=== PATIENT | male | born 1980 | race Caucasian/White ===

== ENCOUNTER 2019-07-23 18:24 | Emergency (ER) | payer OTHER ==
[~2019-07-23] VITALS: Ht 182.9 cm; Wt 91.0 kg
[2019-07-23 18:58] LABS: AMPHETAMINE/METHAMPHETAMINE NEG (NEG); BARBITURATES NEG (NEG); BENZODIAZEPINES NEG (NEG); CANNABINOIDS NEG (NEG); COCAINE NEG (NEG); METHADONE NEG (NEG); OPIATES NEG (NEG); PHENCYCLIDINE NEG (NEG)
--- NOTE | 2019-07-23 18:58 | PHYS DOC ---
Adult General Chief Complaint Chief Complaint: OVERDOSE HPI HPI 38-year-old male presents to the emergency Department complaints of suicidal ideation. Patient took approximately 30-40 Tylenol 325 mg at 1635, 13 100 mg Col norberto. He complains of nausea. He denies any headache, visual change, abdominal pain, diarrhea. Patient has history of depression. Patient is currently in custody, officers at bedside. Patient with limited conversation regarding presentation and circumstances leading up to ingestion. Review of Systems Review of Systems Constitutional: Denies fever or chills [] Respiratory: Denies cough or shortness of breath [] Cardiovascular: No additional information not addressed in HPI [] GI: Denies abdominal pain, + nausea, no vomiting, bloody stools or diarrhea [] : Denies dysuria or hematuria [] Musculoskeletal: Denies back pain or joint pain [] Neurologic: Denies headache, focal weakness or sensory changes [] All other systems were reviewed and found to be within normal limits, except as documented in this note. Current Medications Current Medications Current Medications Medications (Trade) Dose Ordered Sig/Faina Start Time Stop Time Status Last Admin Dose Admin Ondansetron HCl (Zofran) 4 mg 1X ONCE 07/23/19 19:30 07/23/19 19:31 DC 07/23/19 19:25 4 MG Allergies Allergies Allergies Coded Allergies Type Severity Reaction Last Updated Verified Iodine and Iodide Containing Produc Allergy Intermediate 07/23/19 Yes Physical Exam Physical Exam Constitutional: Well developed, well nourished, no acute distress, non-toxic appearance. [] HENT: Normocephalic, atraumatic, bilateral external ears normal, oropharynx moist, no oral exudates, nose normal. [] Eyes: PERRLA, EOMI, conjunctiva normal, no discharge. [] Cardiovascular:Heart rate regular rhythm, no murmur [] Lungs & Thorax: Bilateral breath sounds clear to auscultation [] Abdomen: Bowel sounds normal, soft, no tenderness, no masses, no pulsatile masses. [] Skin: Warm, dry, no erythema, no rash. [] Back: No tenderness, no CVA tenderness. [] Extremities: No tenderness, no edema. [] Neurologic: Alert and oriented X 3, no focal deficits noted. [] Psychologic: Affect normal, judgement normal, mood normal. [] Current Patient Data Vital Signs Vital Signs Date Time Temp Pulse Resp B/P (MAP) Pulse Ox O2 Delivery O2 Flow Rate FiO2 07/23/19 18:30 98.9 78 20 141/97 (112) 98 Room Air 98.9 Lab Values Laboratory Tests Test 07/23/19 18:37 07/23/19 19:13 07/23/19 20:29 Urine Opiates Screen Neg (NEG) Urine Methadone Screen Neg (NEG) Urine Barbiturates Neg (NEG) Urine Phencyclidine Screen Neg (NEG) Urine Amphetamine/Methamphetamine Neg (NEG) Urine Benzodiazepines Screen Neg (NEG) Urine Cocaine Screen Neg (NEG) Urine Cannabinoids Screen Neg (NEG) Urine Ethyl Alcohol Neg (NEG) White Blood Count 7.5 x10^3/uL (4.0-11.0) Red Blood Count 5.50 x10^6/uL (4.30-5.70) Hemoglobin 15.5 g/dL (13.0-17.5) Hematocrit 45.9 % (39.0-53.0) Mean Corpuscular Volume 84 fL (79-100) Mean Corpuscular Hemoglobin 28 pg (25-35) Mean Corpuscular Hemoglobin Concent 34 g/dL (31-37) Red Cell Distribution Width 13.8 % (11.5-14.5) Platelet Count 278 x10^3/uL (140-400) Neutrophils (%) (Auto) 62 % (31-73) Lymphocytes (%) (Auto) 28 % (24-48) Monocytes (%) (Auto) 7 % (0-9) Eosinophils (%) (Auto) 3 % (0-3) Basophils (%) (Auto) 1 % (0-3) Neutrophils # (Auto) 4.6 x10^3/uL (1.8-7.7) Lymphocytes # (Auto) 2.1 x10^3/uL (1.0-4.8) Monocytes # (Auto) 0.5 x10^3/uL (0.0-1.1) Eosinophils # (Auto) 0.2 x10^3/uL (0.0-0.7) Basophils # (Auto) 0.0 x10^3/uL (0.0-0.2) Prothrombin Time 13.0 SEC (11.7-14.0) Prothrombin Time INR 1.0 (0.8-1.1) Sodium Level 142 mmol/L (136-145) Potassium Level 3.8 mmol/L (3.5-5.1) Chloride Level 103 mmol/L (98-107) Carbon Dioxide Level 29 mmol/L (21-32) Anion Gap 10 (6-14) Blood Urea Nitrogen 8 mg/dL (8-26) Creatinine 0.9 mg/dL (0.7-1.3) Estimated GFR (Cockcroft-Gault) 93.9 BUN/Creatinine Ratio 9 (6-20) Glucose Level 95 mg/dL (70-99) Calcium Level 8.9 mg/dL (8.5-10.1) Total Bilirubin 0.2 mg/dL (0.2-1.0) Aspartate Amino Transferase (AST) 18 U/L (15-37) Alanine Aminotransferase (ALT) 31 U/L (16-63) Alkaline Phosphatase 79 U/L (46-116) Total Protein 7.4 g/dL (6.4-8.2) Albumin 3.9 g/dL (3.4-5.0) Albumin/Globulin Ratio 1.1 (1.0-1.7) Salicylates Level < 2.8 mg/dL (2.8-20.0) L Salicylate Last Dose Date Salicylate Last Dose Time Ethyl Alcohol Level < 10 mg/dL (0-10) Acetaminophen Level 4.3 mcg/ml (10-30) L Acetaminophen Last Dose Date Unk Acetaminophen Last Dose Time Unk Laboratory Tests 07/23/19 19:13 Laboratory Tests 07/23/19 19:13 EKG EKG [] Radiology/Procedures Radiology/Procedures [] Course & Med Decision Making Course & Med Decision Making Pertinent Labs and Imaging studies reviewed. (See chart for details) []38-year-old male presents to the emergency Department complaints of suicidal ideation. Patient took approximately 30-40 Tylenol 325 mg at 1635, 13 100 mg Colace. He complains of nausea. He denies any headache, visual change, abdominal pain, diarrhea. Patient has history of depression. Patient is currently in custody, officers at bedside. Patient with limited conversation regarding presentation and circumstances leading up to ingestion. Labs reviewed, AST 18, ALT 31, platelets 278, INR 1.0 Tylenol level initially on arrival at 1912 was 9.9, subsequent repeat 4 hours after ingestion at 2028 was 4.3 Assessment findings with poison control patient stable for discharge Assessment is with patient aware of the plans [facility] Disclaimer Coco Disclaimer This electronic medical record was generated, in whole or in part, using a voice recognition dictation system. Departure Departure Impression: Primary Impression: Suicidal ideation Disposition: 05 TRANSFER OTHER Condition: STABLE Patient Instructions: Suicidal Feelings, How to Help Yourself Additional Instructions: Recommend follow up with PCP 3 - 5 days Return to the ER with worsening symptoms, intractable pain, fever, altered mental status Tylenol/Motrin as needed for pain Labs without acute findings - tylenol level 4.3 (4 hours after ingestion) HARSHAD ANDREA MD Jul 23, 2019 18:58
[2019-07-23] MEDS ORDERED: ONDANSETRON PF 4 MG/2 ML VIAL. IVP ONE (19:30)
[2019-07-23 19:38] LABS: ETHANOL < 10 mg/dL (0-10); SALIC < 2.8 mg/dL (2.8-20.0)
[2019-07-23 19:56] LABS: BASO % 1 % (0-3); EOS # 0.2 x10^3/uL (0.0-0.7); EOS % 3 % (0-3); HEMATOCRIT 45.9 % (39.0-53.0); HEMOGLOBIN 15.5 g/dL (13.0-17.5); LYMPH # 2.1 x10^3/uL (1.0-4.8); LYMPH % 28 % (24-48); MEAN CORPUSCULAR HEMOGLOBIN 28 pg (25-35); MEAN CORPUSCULAR HGB CONC 34 g/dL (31-37); MEAN CORPUSCULAR VOLUME 84 fL (79-100); MONO # 0.5 x10^3/uL (0.0-1.1); MONO % 7 % (0-9); NEUT # 4.6 x10^3/uL (1.8-7.7); NEUT % 62 % (31-73); PLATELET COUNT 278 x10^3/uL (140-400); RED CELL DISTRIBUTION WIDTH 13.8 % (11.5-14.5); WHITE BLOOD COUNT 7.5 x10^3/uL (4.0-11.0)
[2019-07-23 20:00] LABS: CALCIUM 8.9 mg/dL (8.5-10.1); CREATININE 0.9 mg/dL (0.7-1.3); GFR 93.9; POTASSIUM 3.8 mmol/L (3.5-5.1)
[2019-07-23 20:06] LABS: ALBUMIN 3.9 g/dL (3.4-5.0); ALBUMIN/GLOBULIN RATIO 1.1 (1.0-1.7); TOTAL BILIRUBIN 0.2 mg/dL (0.2-1.0); TOTAL PROTEIN 7.4 g/dL (6.4-8.2)
[2019-07-23 20:48] LABS: ACETAMIN 4.3 mcg/ml (10-30)
[2019-07-23 21:19] VITALS: BP 171/104
== END 2019-07-23 21:22 | disposition home or self-care (01) ==
LOC: EEVIPCON 18:24 → ER 18:24
DX: T39.1X2A Poisoning by 4-Aminophenol derivatives, intentional self-harm, initial encounter (principal); T47.4X2A Poisoning by other laxatives, intentional self-harm, initial encounter; R11.0 Nausea; R45.851 Suicidal ideations; F32.9 Major depressive disorder, single episode, unspecified; Z91.041 Radiographic dye allergy status; Y92.89 Other specified places as the place of occurrence of the external cause
CPT/HCPCS: 36415; 80053; 80307; 80329; 85025; 85610; 96374; 99284; G0480; J2405; 99285-25

== ENCOUNTER 2021-01-27 06:37 | Day surgery (SDC) | payer OTHER ==
[~2021-01-27] VITALS: Ht 182.9 cm; Wt 102.0 kg
[~2021-01-27 06:37] MED LIST: ACET325T9 PO; ACETAMINOPHEN 500 MG TABLET PO PRN; ATOR20TA58 PO; BUPR100T11 PO; CETI10TA74 PO; DIVA-53 PO; HYDROmorphone 2 MG/ML VIAL IVP PRN; IV RINGERS,LACTATED 1000ML 1,000 ML IV SCH; LEVO25TA4 PO; LITH300T3 PO; MECL-75 PO; MONT10TA49 PO; MORPHINE SULFATE 2 MG/ML INJ. IVP PRN; NAPR-683 PO; PROCHLORPERAZINE 10 MG/2 ML VIAL. IVP PRN; TAMS0.4C97 PO; fentaNYL PF VIAL 100 MCG/2 ML VIAL IVP PRN
[2021-01-27 06:52] VITALS: BP 129/82
[2021-01-27] MEDS ORDERED: BUPIVACAINE-EPI 0.25%-1:200000 MPF 30 ML VIAL. ONE (07:07)
[2021-01-27] MEDS ORDERED: PROPOFOL 10 MG/ML (20ML) VIAL. IV ONE (07:08)
[2021-01-27] MEDS ORDERED: PHENYLEPHRINE in 0.9% NACL PF 1 MG/10 ML SYRINGE. IV ONE (07:08)
[2021-01-27] MEDS ORDERED: DEXAMETHASONE SOD PHOS 4 MG/ML VIAL ONE (07:08)
[2021-01-27] MEDS ORDERED: SUCCINYLCHOLINE 200 MG/10 ML VIAL. ONE (07:08)
[2021-01-27] MEDS ORDERED: LIDOCAINE 1% PF 5 ML VIAL. ONE (07:08)
[2021-01-27] MEDS ORDERED: NEOSTIGMINE METHYLSULFATE 5 MG/5 ML SYRINGE. ONE (07:09)
[2021-01-27] MEDS ORDERED: ROCURONIUM 50 MG/5 ML VIAL. ONE (07:09)
[2021-01-27] MEDS ORDERED: GLYCOPYRROLATE 1 MG/5 ML VIAL. ONE (07:09)
[2021-01-27] MEDS ORDERED: MIDAZOLAM HCL/PF 2 MG/2 ML VIAL. ONE (07:09)
[2021-01-27] MEDS ORDERED: fentaNYL PF VIAL 250 MCG/5 ML VIAL ONE (07:10)
--- NOTE | 2021-01-27 07:42 | PDOC1 ---
History and Physical Date of Admission Date of Admission DATE: 01/27/21 TIME: 07:39 Identification/Chief Complaint Chief Complaint Abdominal pain Source Source: Patient History of Present Illness History of Present Illness 40-year-old male with complaints of abdominal pain and a painful bulge just above his umbilicus been present for about 6 years but is getting more painful especially with activity Past Medical History Cardiovascular: No pertinent hx Pulmonary: No pertinent hx GI: No pertinent hx Heme/Onc: No pertinent hx Hepatobiliary: No pertinent hx Psych: No pertinent hx Rheumatologic: No pertinent hx Infectious disease: No pertinent hx ENT: No pertinent hx Renal/: No pertinent hx Endocrine: No pertinent hx Dermatology: No pertinent hx Past Surgical History Past Surgical History: No pertinent history Family History Family History: No Significant Social History Smoke: No ALCOHOL: none Drugs: None Current Medications Current Medications Current Medications Fentanyl Citrate (Fentanyl 2ml Vial) 25 mcg PRN Q5MIN PRN IVP MILD PAIN 1-3; Start 01/27/21 at 06:00; Stop 01/28/21 at 05:59 Fentanyl Citrate (Fentanyl 2ml Vial) 50 mcg PRN Q5MIN PRN IVP MODERATE PAIN 4- 6; Start 01/27/21 at 06:00; Stop 01/28/21 at 05:59 Morphine Sulfate (Morphine Sulfate) 1 mg PRN Q10MIN PRN IVP SEVERE PAIN 7-10; Start 01/27/21 at 06:00; Stop 01/28/21 at 05:59 Ringer's Solution 1,000 ml @ 30 mls/hr Q24H IV Last administered on 01/27/21at 06:55; Start 01/27/21 at 06:00; Stop 01/27/21 at 17:59 Hydromorphone HCl (Dilaudid) 0.5 mg PRN Q10MIN PRN IVP SEVERE PAIN 7-10, 2nd CHOICE; Start 01/27/21 at 06:00; Stop 01/28/21 at 05:59 Prochlorperazine Edisylate (Compazine) 5 mg PACU PRN PRN IVP NAUSEA, MRX1; Start 01/27/21 at 06:00; Stop 01/28/21 at 05:59 Acetaminophen (Tylenol) 1,000 mg 1X PREOP PRN PO PRIOR TO PROCEDURE Last administered on 01/27/21at 06:55; Start 01/27/21 at 06:00; Stop 01/27/21 at 18:00 Cefazolin Sodium/ Dextrose 50 ml @ 100 mls/hr 1X PREOP PRN IV PRIOR TO PROCEDURE; Start 01/27/21 at 06:00; Stop 01/27/21 at 18:00 Bupivacaine HCl/ Epinephrine Bitart (Sensorcaine-Epi 0.25%-1:190045 Mpf) 30 ml STK-MED ONCE .ROUTE ; Start 01/27/21 at 07:07; Stop 01/27/21 at 07:07; Status DC Propofol (Diprivan) 200 mg STK-MED ONCE IV ; Start 01/27/21 at 07:08; Stop 01/27/21 at 07:08; Status DC Phenylephrine HCl (PHENYLEPHRINE in 0.9% NACL PF) 1 mg STK-MED ONCE IV ; Start 01/27/21 at 07:08; Stop 01/27/21 at 07:08; Status DC Lidocaine HCl (Xylocaine-Mpf 1% 5ml Vial) 5 ml STK-MED ONCE .ROUTE ; Start 01/27/21 at 07:08; Stop 01/27/21 at 07:08; Status DC Dexamethasone Sodium Phosphate (Decadron) 4 mg STK-MED ONCE .ROUTE ; Start 01/27/21 at 07:08; Stop 01/27/21 at 07:08; Status DC Succinylcholine Chloride (Anectine) 200 mg STK-MED ONCE .ROUTE ; Start 01/27/21 at 07:08; Stop 01/27/21 at 07:09; Status DC Neostigmine [place] (Neostigmine Methylsulfate) 5 mg STK-MED ONCE .ROUTE ; Start 01/27/21 at 07:09; Stop 01/27/21 at 07:09; Status DC Rocuronium [place] (Zemuron) 50 mg STK-MED ONCE .ROUTE ; Start 01/27/21 at 07:09; Stop 01/27/21 at 07:09; Status DC Midazolam HCl (Versed) 2 mg STK-MED ONCE .ROUTE ; Start 01/27/21 at 07:09; Stop 01/27/21 at 07:09; Status DC Glycopyrrolate (Robinul) 1 mg STK-MED ONCE .ROUTE ; Start 01/27/21 at 07:09; Stop 01/27/21 at 07:10; Status DC Fentanyl Citrate (Fentanyl 5ml Vial) 250 mcg STK-MED ONCE .ROUTE ; Start 01/27/21 at 07:10; Stop 01/27/21 at 07:10; Status DC Active Scripts Active Reported Zyrtec (Cetirizine Hcl) 10 Mg Tablet 10 Mg PO DAILY Montelukast Sodium Tablet (Montelukast Sodium) 10 Mg Tablet 10 Mg PO HS Tylenol (Acetaminophen) 325 Mg Tablet 325 Mg PO PRN BID PRN Bupropion Hcl 100 Mg Tablet 150 Mg PO BID [place] Carbonate 300 Mg Tablet 300 Mg PO BID Levothyroxine Sodium 25 Mcg Tablet 25 Mcg PO DAILYAC Atorvastatin Calcium 20 Mg Tablet 20 Mg PO HS Meclizine Hcl 25 Mg Tablet 50 Mg PO PRN BID PRN Divalproex Sodium 500 Mg Tablet.dr 500 Mg PO QHS Flomax (Tamsulosin Hcl) 0.4 Mg Cap.er.24h 0.8 Mg PO QHS Naprosyn (Naproxen) 500 Mg Tablet 1 Tab PO BID 30 Days Allergies Allergies: Coded Allergies: Iodine and Iodide Containing Produc (Verified Allergy, Intermediate, 01/27/21) potassium iodide (Verified Allergy, Unknown, Unknown, 01/27/21) sodium iodide (Verified Allergy, Unknown, Unknown, 01/27/21) ROS Gastrointestinal: Yes Abdominal Pain Physical Exam General: Alert, Oriented X3, Cooperative, No acute distress HEENT: Atraumatic, EOMI Lungs: Clear to auscultation, Normal air movement Heart: RRR, no murmurs Abdomen: Normal bowel sounds, Soft, Other (Tender mass just above his umbilicus consistent with pain hernia) Rectal Exam: not examined Extremities: No edema Skin: No significant lesion Neuro: Normal speech Psych/Mental Status: Mental status NL Vitals Vitals Vital Signs Date Time Temp Pulse Resp B/P (MAP) Pulse Ox O2 Delivery O2 Flow Rate FiO2 01/27/21 06:52 97.9 99 20 99 97.9 01/27/21 06:45 129/82 Room Air Labs Labs Laboratory Tests Test 01/27/21 06:45 SARS-CoV-2 Antigen (Rapid) Negative (NEGATIVE) Laboratory Tests Test 01/27/21 06:45 SARS-CoV-2 Antigen (Rapid) Negative (NEGATIVE) VTE Prophylaxis Ordered VTE Prophylaxis Devices: Yes VTE Pharmacological Prophylaxi: Contraindicated Assessment/Plan Assessment/Plan Ventral hernia supraumbilical plan for robotic assisted laparoscopic ventral hernia repair with mesh Justifications for Admission Other Justification KELSEY SMITH MD Jan 27, 2021 07:42
--- NOTE | 2021-01-27 08:47 | PDOC4 ---
Operative Note Operative Note Date: January 27, 2021 at 844 Preoperative diagnosis: Ventral hernia Postoperative diagnosis: Same Procedure: Robotic assisted laparoscopic ventral hernia repair with mesh Surgeon: Juwan Specimen: None Dictation: Patient is a 40-year-old gentleman with complaints of a painful bulge just above his umbilicus in the midline of his abdomen. Procedure of robotic assisted laparoscopic ventral hernia repair with mesh was explained to the patient in detail risk benefits were also discussed including bleeding infection injury to intra-abdominal contents possible necessitating further open operations alternatives to this procedure also discussed with the patient who seemed to understand and gave both verbal and written consent to have the procedure performed. Patient was taken to the operating room placed in the supine position general anesthesia was initiated once patient was sleeping intubated his abdomen was prepped and draped usual sterile fashion using ChloraPrep. An area in the left upper quadrant was injected with quarter percent Marcaine with epinephrine incision was made 11 blade scalpel and a 5 mm Visiport placed under direct visualization into the abdomen creating pneumoperitoneum 5 mm scope was placed within the abdomen which was inspected no other abnormalities were noted other than a ventral hernia. 8 mm da Albin port was placed in the left lateral abdomen and an 8 mm ventral port was placed in the left lower abdomen and the 5 mm Visiport was changed out for a millimeter da Albin port. The da Albin robot is brought and docked all port sites surgeon went to the robotic console using grasper and Endo Maribel scissors the area around the fascia hernia edges was cleared of its peritoneal fat. The fascial defect was then closed with a running 2 OV lock nonabsorbable suture ventral light ST mesh was then placed over the hernia defect this was sewn into place with a running 2 OV lock absorbable suture and the preperitoneal fat was closed over the mesh again with the running 2 OV lock nonabsorbable suture. Sutures removed from the abdomen da Albin robot is undocked from all port sites all ports were removed the pneumoperitoneum reduced port sites were all closed with 4 subcuticular Monocryl Mastisol Steri-Strips and island dressings were applied. Patient was awakened and extubated in the operating room taken to recovery in stable condition all sponge instrument needle counts listed as correct estimated blood loss 5 mL KELSEY SMITH MD Jan 27, 2021 08:47
--- NOTE | 2021-01-27 08:48 | DISCH ---
DISCHARGE INSTRUCTIONS Condition on Discharge Condition on Discharge: Stable Activity After Discharge Activity Instructions for Disc: Avoid exertion Other activity instructions: No lifting more than 20 pounds for 2 weeks Diet after Discharge Diet after Discharge: Regular Wound Incision Care Other wound/incision instructi: Xochilt shower in 24 hours Contacting the DRDonavon after DC Call your doctor for: If your condition worsens Follow-Up Follow up with: Dr. Smith in 2 weeks KELSEY SMITH MD Jan 27, 2021 08:48
[2021-01-27] MEDS ORDERED: PROCHLORPERAZINE 10 MG/2 ML VIAL. ONE (09:33)
[2021-01-27 09:37] VITALS: BP 130/81
[2021-01-27] MEDS ORDERED: KETOROLAC 30 MG/ML VIAL. ONE (09:43)
== END 2021-01-27 10:03 | disposition home or self-care (01) ==
LOC: SURG 06:37
PROVIDERS: ATTEND Surgery
DX: K43.9 Ventral hernia without obstruction or gangrene (principal); I10 Essential (primary) hypertension; E78.00 Pure hypercholesterolemia, unspecified; F41.9 Anxiety disorder, unspecified; F32.9 Major depressive disorder, single episode, unspecified; F17.210 Nicotine dependence, cigarettes, uncomplicated; Z79.899 Other long term (current) drug therapy; Z98.890 Other specified postprocedural states; Z91.041 Radiographic dye allergy status; Z88.8 Allergy status to other drugs, medicaments and biological substances; Z20.822 Contact with and (suspected) exposure to COVID-19
CPT/HCPCS: 49652; 87426; A4364; A4930; A6219; A6258; A6402; C1781; J0330; J0690; J0780; J1100; J1885; J2250; J2370; J2704; J2710; J3010; J3490; S2900; A4223; A4657